=== PATIENT | male | born 1945 | race Caucasian/White ===

== ENCOUNTER → 2017-04-27 | Outpatient (CLI) | payer MEDICARE, OTHER | LOC: COL.RAD 14:24 | DX: M48.07 Spinal stenosis, lumbosacral region (principal); M47.817 Spondylosis without myelopathy or radiculopathy, lumbosacral region; M79.662 Pain in left lower leg; M79.661 Pain in right lower leg; R53.1 Weakness ==

== ENCOUNTER 2017-07-28 16:59 | Emergency (ER) | payer MEDICARE, OTHER ==
[~2017-07-28] VITALS: Ht 180.3 cm; Wt 109.1 kg
[2017-07-28 17:02] VITALS: TEMP 97.5
[2017-07-28 17:32] LABS: BASO # 0.1 (0.0-0.2); BASO % 0.5 % (0.0-2.0); EOS # 0.3 (0.0-0.7); EOS % 3.1 % (0-4.0); GRAN # 4.7 (1.4-6.5); GRAN % 43.6 % (42.2-75.2); HEMATOCRIT 37.5 % (42.0-52.0); HEMOGLOBIN 12.3 g/dl (13.5-18.0); LYMPH # 4.9 (1.2-3.4); LYMPH % 45.4 % (20.0-51.0); MEAN CELL VOLUME 97 fl (80.0-100.0); MEAN CORPUSCULAR HEMOGLOBIN 32 pg (27.0-31.0); MEAN CORPUSCULAR HGB CONC 33 g/dl (33.0-37.0); MEAN PLATELET VOLUME 9.2 fl (7.4-10.4); MONO # 0.7 (0.1-0.6); MONO % 6.6 % (1.7-9.3); PLATELET COUNT 217 K/mm3 (130-400); RED BLOOD COUNT 3.86 M/mm3 (4.20-5.60); WHITE BLOOD COUNT 10.8 K/mm3 (4.8-10.8)
[2017-07-28 17:37] LABS: PROTHROMBIN TIME 11.4 SECONDS (9.7-12.8)
[2017-07-28 17:40] LABS: PARTIAL THROMBOPLASTIN TIME 22.2 SECONDS (26.0-37.0)
[2017-07-28 17:41] LABS: ADJUSTED CALCIUM 9.4 mg/dL (8.4-10.2); ALANINE AMINOTRANSFERASE 38 U/L (21-72); ALBUMIN 3.8 gm/dL (3.5-5.0); ALKALINE PHOSPHATASE 55 U/L (50-136); ANION GAP 8 mmol/L (7-16); BILIRUBIN,TOTAL 0.2 mg/dL (0.0-1.0); BLOOD UREA NITROGEN 18 mg/dL (9-20); CALCIUM 9.2 mg/dL (8.4-10.2); CARBON DIOXIDE 25 mmol/L (22-30); CHLORIDE 104 mmol/L (98-107); CREATININE, serum 1.12 mg/dL (0.66-1.25); GLUCOSE 162 mg/dL (74-106); LIPASE 144 U/L (23-300); POTASSIUM 3.9 mmol/L (3.4-5.0); SODIUM 137 mmol/L (137-145); TOTAL PROTEIN 6.3 gm/dL (6.4-8.2)
[2017-07-28 17:55] LABS: TROPONIN-I < 0.012 ng/mL (0.000-0.034)
[2017-07-28] MEDS ORDERED: INCRUSE EL62.5 MCG/A IH (17:56)
[2017-07-28] MEDS ORDERED: RT ADVAIR 128 DISKUS IH (17:56)
[2017-07-28 18:17] VITALS: BP 117/84; PULSE 87
== END 2017-07-28 18:30 | disposition short-term general hospital (02) ==
LOC: COL.ER 16:59
PROVIDERS: Emergency Medicine
DX: I71.3 Abdominal aortic aneurysm, ruptured (principal); J44.9 Chronic obstructive pulmonary disease, unspecified; G89.29 Other chronic pain; M54.5 Low back pain; Z87.891 Personal history of nicotine dependence; Z98.890 Other specified postprocedural states
CPT/HCPCS: J1200; J2270; J2405; J7030; J7050; P9016; Q9967

== ENCOUNTER 2017-09-08 09:24 | Inpatient (IN) | payer MEDICARE, OTHER ==
[2017-09-08] VITALS (12 sets, daily range): BP systolic 117–165; BP diastolic 52–77; PULSE 59–70; TEMP 97.6–97.8
[~2017-09-08] VITALS: Ht 180.3 cm; Wt 98.1 kg
[~2017-09-08 09:24] MED LIST: INCRUSE EL62.5 MCG/A IH; RT ADVAIR 128 DISKUS IH
[2017-09-08] MEDS ORDERED: BP MED (09:40)
[2017-09-08] MEDS ORDERED: FLOMAX 0.40.4 MG/CAP PO (09:41)
[2017-09-08] MEDS ORDERED: LASIX 20MG TABL20 MG (09:41)
[2017-09-08 10:57] LABS: BASO % 0.3 % (0.0-2.0); EOS # 0.1 (0.0-0.7); EOS % 0.9 % (0-4.0); GRAN # 8.7 (1.4-6.5); GRAN % 73.2 % (42.2-75.2); HEMATOCRIT 39.6 % (42.0-52.0); HEMOGLOBIN 12.7 g/dl (13.5-18.0); LYMPH # 2.3 (1.2-3.4); MEAN CELL VOLUME 96 fl (80.0-100.0); MEAN CORPUSCULAR HEMOGLOBIN 31 pg (27.0-31.0); MEAN CORPUSCULAR HGB CONC 32 g/dl (33.0-37.0); MEAN PLATELET VOLUME 8.7 fl (7.4-10.4); MONO # 0.7 (0.1-0.6); PLATELET COUNT 195 K/mm3 (130-400); RED BLOOD COUNT 4.14 M/mm3 (4.20-5.60); REDCELL DISTRIBUTION WIDTH-CV 14.6 % (11.5-14.5)
[2017-09-08 11:12] LABS: ALBUMIN 4.3 gm/dL (3.5-5.0); BILIRUBIN,TOTAL 0.7 mg/dL (0.0-1.0); CALCIUM 9.7 mg/dL (8.4-10.2); POTASSIUM 4.3 mmol/L (3.4-5.0); TOTAL PROTEIN 7.6 gm/dL (6.4-8.2)
[2017-09-08] MEDS ORDERED: NORVASC 5MG5 MG/TAB PO (13:08)
[2017-09-08] MEDS ORDERED: PROAIR HFA0.09 MG/AC IH (13:09)
[2017-09-08] MEDS ORDERED: RT ADVAIR 228 DISKUS IH (13:09)
[2017-09-09 01:35] VITALS: BP 113/48; PULSE 61; TEMP 97.8
[2017-09-09 04:08] VITALS: BP 113/48; PULSE 62; TEMP 98.8
[2017-09-09 08:00] VITALS: BP 134/63; PULSE 59; TEMP 97.8
[2017-09-09 11:22] VITALS: BP 112/43; PULSE 72; TEMP 98.1
[2017-09-09 12:23] LABS: BASO % 0.4 % (0.0-2.0); EOS # 0.1 (0.0-0.7); EOS % 1.2 % (0-4.0); GRAN # 4.1 (1.4-6.5); GRAN % 60.5 % (42.2-75.2); HEMATOCRIT 34.9 % (42.0-52.0); HEMOGLOBIN 11.3 g/dl (13.5-18.0); LYMPH # 1.9 (1.2-3.4); LYMPH % 27.4 % (20.0-51.0); MEAN CELL VOLUME 96 fl (80.0-100.0); MEAN CORPUSCULAR HEMOGLOBIN 31 pg (27.0-31.0); MEAN CORPUSCULAR HGB CONC 32 g/dl (33.0-37.0); MEAN PLATELET VOLUME 8.7 fl (7.4-10.4); MONO # 0.7 (0.1-0.6); MONO % 9.9 % (1.7-9.3); PLATELET COUNT 185 K/mm3 (130-400); RED BLOOD COUNT 3.64 M/mm3 (4.20-5.60); REDCELL DISTRIBUTION WIDTH-CV 14.6 % (11.5-14.5)
[2017-09-09 12:34] LABS: CALCIUM 8.7 mg/dL (8.4-10.2); CREATININE, serum 0.86 mg/dL (0.66-1.25); POTASSIUM 3.3 mmol/L (3.4-5.0)
[2017-09-09 15:52] VITALS: BP 133/56; PULSE 60; TEMP 98.7
[2017-09-09 22:26] VITALS: BP 124/55; PULSE 54; TEMP 98.1
[2017-09-10] VITALS (14 sets, daily range): BP systolic 117–170; BP diastolic 50–75; PULSE 59–70; TEMP 98.1–98.2
[2017-09-10 07:21] LABS: BASO % 0.4 % (0.0-2.0); EOS # 0.1 (0.0-0.7); EOS % 1.5 % (0-4.0); GRAN # 4.8 (1.4-6.5); GRAN % 61.3 % (42.2-75.2); LYMPH # 2.2 (1.2-3.4); LYMPH % 27.7 % (20.0-51.0); MEAN CELL VOLUME 96 fl (80.0-100.0); MEAN CORPUSCULAR HGB CONC 32 g/dl (33.0-37.0); MEAN PLATELET VOLUME 9.1 fl (7.4-10.4); MONO # 0.7 (0.1-0.6); MONO % 8.6 % (1.7-9.3); PLATELET COUNT 211 K/mm3 (130-400); RED BLOOD COUNT 3.51 M/mm3 (4.20-5.60); REDCELL DISTRIBUTION WIDTH-CV 14.5 % (11.5-14.5)
[2017-09-10 07:26] LABS: HEMATOCRIT 33.6 % (42.0-52.0); HEMOGLOBIN 10.8 g/dl (13.5-18.0); MEAN CORPUSCULAR HEMOGLOBIN 31 pg (27.0-31.0)
[2017-09-10 07:29] LABS: CALCIUM 9.1 mg/dL (8.4-10.2); CREATININE, serum 0.77 mg/dL (0.66-1.25); POTASSIUM 4.2 mmol/L (3.4-5.0)
[2017-09-10 20:19] LABS: HEMATOCRIT 32.2 % (42.0-52.0); HEMOGLOBIN 10.3 g/dl (13.5-18.0)
[2017-09-11 00:13] VITALS: BP 115/41; PULSE 56; TEMP 98.1
[2017-09-11 04:34] VITALS: BP 103/84; PULSE 56; TEMP 97.8
[2017-09-11 08:19] VITALS: BP 123/44; PULSE 71; TEMP 97.2
[2017-09-11 08:22] LABS: BASO % 0.3 % (0.0-2.0); EOS # 0.1 (0.0-0.7); EOS % 2.3 % (0-4.0); GRAN # 3.6 (1.4-6.5); GRAN % 59.4 % (42.2-75.2); LYMPH # 1.8 (1.2-3.4); LYMPH % 29.3 % (20.0-51.0); MEAN CELL VOLUME 97 fl (80.0-100.0); MEAN CORPUSCULAR HGB CONC 32 g/dl (33.0-37.0); MEAN PLATELET VOLUME 8.5 fl (7.4-10.4); MONO # 0.5 (0.1-0.6); MONO % 8.2 % (1.7-9.3); PLATELET COUNT 184 K/mm3 (130-400); RED BLOOD COUNT 3.26 M/mm3 (4.20-5.60); REDCELL DISTRIBUTION WIDTH-CV 14.4 % (11.5-14.5)
[2017-09-11 08:24] LABS: HEMATOCRIT 31.5 % (42.0-52.0); HEMOGLOBIN 10.1 g/dl (13.5-18.0); MEAN CORPUSCULAR HEMOGLOBIN 31 pg (27.0-31.0)
[2017-09-11 08:31] LABS: CREATININE, serum 0.75 mg/dL (0.66-1.25)
[2017-09-11] MEDS ORDERED: ASPIRIN E.C. 8181 MG PO (11:59)
[2017-09-11] MEDS ORDERED: PLAVIX 75MG TAB75 MG PO (11:59)
[2017-09-11] MEDS ORDERED: ELIQUIS 5MG PO (12:02)
[2017-09-11] MEDS ORDERED: PROTONIX 40MG T40 MG PO (12:10)
== END 2017-09-11 14:00 | disposition home health service (06) | DRG 271 ==
LOC: COL.ER 09:24 → MEDICAL 11:16
PROVIDERS: Emergency Medicine; Nurse Practitioner Family; Physician Assistant; Radiology Diagnostic Radiology
PROC: 06H03DZ Insertion of Intraluminal Device into Inferior Vena Cava, Percutaneous Approach (ICD-10-PCS; principal; 2017-09-08)
PROC: 06CD3ZZ Extirpation of Matter from Left Common Iliac Vein, Percutaneous Approach (ICD-10-PCS; 2017-09-10)
PROC: 067D3DZ Dilation of Left Common Iliac Vein with Intraluminal Device, Percutaneous Approach (ICD-10-PCS; 2017-09-10)
PROC: 067C3DZ Dilation of Right Common Iliac Vein with Intraluminal Device, Percutaneous Approach (ICD-10-PCS; 2017-09-10)
PROC: 067G3DZ Dilation of Left External Iliac Vein with Intraluminal Device, Percutaneous Approach (ICD-10-PCS; 2017-09-10)
PROC: 067N3DZ Dilation of Left Femoral Vein with Intraluminal Device, Percutaneous Approach (ICD-10-PCS; 2017-09-10)
PROC: 067F3DZ Dilation of Right External Iliac Vein with Intraluminal Device, Percutaneous Approach (ICD-10-PCS; 2017-09-10)
PROC: 06703ZZ Dilation of Inferior Vena Cava, Percutaneous Approach (ICD-10-PCS; 2017-09-10)
PROC: B54DZZ3 Ultrasonography of Bilateral Lower Extremity Veins, Intravascular (ICD-10-PCS; 2017-09-10)
PROC: B51B1ZA Fluoroscopy of Right Lower Extremity Veins using Low Osmolar Contrast, Guidance (ICD-10-PCS; 2017-09-10)
DX: I82.422 Acute embolism and thrombosis of left iliac vein (principal); I97.638 Postprocedural hematoma of a circulatory system organ or structure following other circulatory system procedure; I82.412 Acute embolism and thrombosis of left femoral vein; I10 Essential (primary) hypertension; K44.9 Diaphragmatic hernia without obstruction or gangrene; Z87.891 Personal history of nicotine dependence; E87.6 Hypokalemia; I70.293 Other atherosclerosis of native arteries of extremities, bilateral legs
CPT/HCPCS: 99223-AI; 99232-AI; 99239; C1725; C1753; C1757; C1769; C1876; C1880; C1887; C1894; J0360; J1170; J1644; J1650; J2250; J2270; J3010; J7030; J7040; Q9967

== ENCOUNTER → 2018-03-01 | Outpatient (CLI) | payer MEDICARE, OTHER ==
[~2018-03-01] MED LIST changes: +ASPIRIN E.C. 8181 MG PO; +BP MED; +ELIQUIS 5MG PO; +FLOMAX 0.40.4 MG/CAP PO; +LASIX 20MG TABL20 MG; +NORVASC 5MG5 MG/TAB PO; +PLAVIX 75MG TAB75 MG PO; +PROAIR HFA0.09 MG/AC IH; +PROTONIX 40MG T40 MG PO; +RT ADVAIR 228 DISKUS IH
== END ==
LOC: COL.VAS 07:52
DX: I87.2 Venous insufficiency (chronic) (peripheral) (principal); Z79.01 Long term (current) use of anticoagulants; Z86.718 Personal history of other venous thrombosis and embolism

== ENCOUNTER → 2018-03-02 | Outpatient (CLI) | payer MEDICARE, OTHER | LOC: COL.RAD 08:02 | DX: Z09 Encounter for follow-up examination after completed treatment for conditions other than malignant neoplasm (principal); Z95.5 Presence of coronary angioplasty implant and graft; Z95.820 Peripheral vascular angioplasty status with implants and grafts ==

== ENCOUNTER 2018-03-18 07:32 | Outpatient (CLI) | payer MEDICARE, OTHER ==
[2018-03-18] VITALS (8 sets, daily range): BP systolic 117–155; BP diastolic 64–86; PULSE 46–64; TEMP 96.8–99.3
[~2018-03-18] VITALS: Ht 180.3 cm; Wt 105.0 kg
[~2018-03-18 07:32] MED LIST changes: -PROAIR HFA0.09 MG/AC IH
[2018-03-18] MEDS ORDERED: PROAIR HFA0.09 MG/AC IH (08:09)
[2018-03-18] MEDS ORDERED: PLAVIX 75MG TAB75 MG PO (08:11)
[2018-03-18] MEDS ORDERED: PROTONIX 40MG T40 MG PO (08:12)
[2018-03-18] MEDS ORDERED: ELIQUIS 5MG PO (08:13)
[2018-03-18] MEDS ORDERED: SENOKOT S 50 MG1 TAB PO ×2 (08:15)
== END 2018-03-18 13:21 | disposition home or self-care (01) ==
LOC: COL.CAR 07:32
DX: Z45.2 Encounter for adjustment and management of vascular access device (principal); I82.409 Acute embolism and thrombosis of unspecified deep veins of unspecified lower extremity; I71.3 Abdominal aortic aneurysm, ruptured; Z79.01 Long term (current) use of anticoagulants; Z79.02 Long term (current) use of antithrombotics/antiplatelets
CPT/HCPCS: C1769; J1644; J2250; J3010; J7120

== ENCOUNTER 2018-08-02 09:00 | Outpatient (RCR) | payer MEDICARE, OTHER ==
[~2018-08-02 09:00] MED LIST changes: +PROAIR HFA0.09 MG/AC IH; +SENOKOT S 50 MG1 TAB PO
== END 2018-08-05 | disposition home or self-care (01) ==
LOC: MKS.ESL.PT
DX: M54.40 Lumbago with sciatica, unspecified side (principal); M79.605 Pain in left leg; M25.552 Pain in left hip; M79.604 Pain in right leg; M25.551 Pain in right hip; Z79.01 Long term (current) use of anticoagulants; Z79.899 Other long term (current) drug therapy; Z86.718 Personal history of other venous thrombosis and embolism; Z95.828 Presence of other vascular implants and grafts
CPT/HCPCS: G8978-GP; G8979-GP

== ENCOUNTER 2018-09-03 15:00 | Outpatient (RCR) | payer MEDICARE, OTHER | END 2018-09-06 09:29 | disposition home or self-care (01) | LOC: MKS.ESL.PT 15:00 | DX: M54.5 Low back pain (principal); M79.605 Pain in left leg; M79.604 Pain in right leg | CPT/HCPCS: G0283-GP ==

== ENCOUNTER → 2018-11-23 | Outpatient (CLI) | payer MEDICARE, OTHER | LOC: COL.RAD 10:55 | DX: M51.27 Other intervertebral disc displacement, lumbosacral region (principal); M51.36 Other intervertebral disc degeneration, lumbar region; M48.062 Spinal stenosis, lumbar region with neurogenic claudication; M89.38 Hypertrophy of bone, other site; I71.4 Abdominal aortic aneurysm, without rupture; Z95.828 Presence of other vascular implants and grafts ==

== ENCOUNTER → 2018-12-08 | Outpatient (CLI) | payer MEDICARE, OTHER | LOC: COL.RAD 10:19 | DX: M47.816 Spondylosis without myelopathy or radiculopathy, lumbar region (principal); M54.42 Lumbago with sciatica, left side ==

== ENCOUNTER → 2019-03-23 | Outpatient (CLI) | payer MEDICARE, OTHER | LOC: COL.RAD 12:15 | DX: M47.812 Spondylosis without myelopathy or radiculopathy, cervical region (principal); M48.02 Spinal stenosis, cervical region; R26.81 Unsteadiness on feet ==

== ENCOUNTER → 2019-04-05 | Outpatient (CLI) | payer MEDICARE, OTHER | LOC: COL.VAS 09:26 | DX: M48.062 Spinal stenosis, lumbar region with neurogenic claudication (principal); I73.9 Peripheral vascular disease, unspecified ==

== ENCOUNTER → 2019-06-10 | Outpatient (CLI) | payer MEDICARE, OTHER | LOC: COL.RAD 09:28 | DX: M47.812 Spondylosis without myelopathy or radiculopathy, cervical region (principal); R29.2 Abnormal reflex ==

== ENCOUNTER 2019-06-22 09:15 | Outpatient (RCR) | payer MEDICARE, OTHER | END 2019-06-23 | disposition home or self-care (01) | LOC: WSC | DX: M48.062 Spinal stenosis, lumbar region with neurogenic claudication (principal); M47.819 Spondylosis without myelopathy or radiculopathy, site unspecified; M53.3 Sacrococcygeal disorders, not elsewhere classified ==

== ENCOUNTER 2019-07-25 08:00 | Outpatient (RCR) | payer MEDICARE, OTHER | END 2019-07-28 13:52 | disposition home or self-care (01) | LOC: WSC 08:00 | DX: M48.062 Spinal stenosis, lumbar region with neurogenic claudication (principal); M47.819 Spondylosis without myelopathy or radiculopathy, site unspecified; M53.3 Sacrococcygeal disorders, not elsewhere classified ==

== ENCOUNTER → 2019-12-16 | Outpatient (CLI) | payer MEDICARE, OTHER | LOC: COL.RAD 08:12 | DX: I71.4 Abdominal aortic aneurysm, without rupture (principal); Z87.891 Personal history of nicotine dependence; Z95.5 Presence of coronary angioplasty implant and graft ==

== ENCOUNTER 2020-07-13 09:00 | Outpatient (RCR) | payer MEDICARE, OTHER | END 2020-07-24 | disposition home or self-care (01) | LOC: WSC | DX: M48.04 Spinal stenosis, thoracic region (principal); G99.2 Myelopathy in diseases classified elsewhere; M47.819 Spondylosis without myelopathy or radiculopathy, site unspecified; M43.8X9 Other specified deforming dorsopathies, site unspecified ==

== ENCOUNTER → 2021-01-01 | Outpatient (CLI) | payer MEDICARE, OTHER | LOC: COL.RAD 12:39 | DX: Z12.2 Encounter for screening for malignant neoplasm of respiratory organs (principal); Z87.891 Personal history of nicotine dependence ==

== ENCOUNTER → 2021-01-04 | Outpatient (CLI) | payer MEDICARE, OTHER | LOC: COL.RAD 06:42 | DX: Z13.6 Encounter for screening for cardiovascular disorders (principal); Z95.828 Presence of other vascular implants and grafts; Z87.891 Personal history of nicotine dependence ==

== ENCOUNTER → 2021-07-31 | Outpatient (CLI) | payer MEDICARE, OTHER | LOC: COL.VAS 11:42 | DX: I73.9 Peripheral vascular disease, unspecified (principal); Z98.890 Other specified postprocedural states; Z95.820 Peripheral vascular angioplasty status with implants and grafts ==

== ENCOUNTER → 2021-12-19 | Outpatient (CLI) | payer MEDICARE, OTHER | LOC: COL.RAD 08:21 | DX: I71.4 Abdominal aortic aneurysm, without rupture (principal) ==

== ENCOUNTER → 2022-01-03 | Outpatient (CLI) | payer MEDICARE, OTHER | LOC: COL.RAD 13:48 | DX: Z12.2 Encounter for screening for malignant neoplasm of respiratory organs (principal); F17.201 Nicotine dependence, unspecified, in remission ==

== ENCOUNTER → 2022-01-07 | Outpatient (CLI) | payer MEDICARE, OTHER | LOC: MHCPAIN 10:49 | DX: M54.50 Low back pain, unspecified (principal); I73.9 Peripheral vascular disease, unspecified; M25.552 Pain in left hip; M25.551 Pain in right hip; E11.9 Type 2 diabetes mellitus without complications; J44.9 Chronic obstructive pulmonary disease, unspecified; M53.3 Sacrococcygeal disorders, not elsewhere classified | CPT/HCPCS: G0463 ==

== ENCOUNTER → 2022-01-07 | Outpatient (CLI) | payer MEDICARE, OTHER | LOC: COL.RAD 12:19 | DX: M16.0 Bilateral primary osteoarthritis of hip (principal); M47.816 Spondylosis without myelopathy or radiculopathy, lumbar region; Z95.828 Presence of other vascular implants and grafts ==

== ENCOUNTER → 2022-03-13 | Outpatient (CLI) | payer MEDICARE, OTHER | LOC: COL.RAD 08:26 | DX: R10.84 Generalized abdominal pain (principal) ==

== ENCOUNTER → 2022-04-01 | Outpatient (CLI) | payer MEDICARE, OTHER | LOC: MHCPAIN 10:23 | DX: M54.9 Dorsalgia, unspecified (principal); M54.59 Other low back pain; Z98.890 Other specified postprocedural states; I73.9 Peripheral vascular disease, unspecified; R29.6 Repeated falls; G62.9 Polyneuropathy, unspecified | CPT/HCPCS: G0463 ==

== ENCOUNTER → 2022-04-03 | Outpatient (CLI) | payer MEDICARE, OTHER | LOC: COL.RAD 10:18 | DX: I73.9 Peripheral vascular disease, unspecified (principal); Z95.820 Peripheral vascular angioplasty status with implants and grafts | CPT/HCPCS: Q9967 ==

== ENCOUNTER → 2022-04-17 | Outpatient (CLI) | payer MEDICARE, OTHER | LOC: MHCPAIN 10:15 | DX: M54.59 Other low back pain (principal); R29.6 Repeated falls; I73.9 Peripheral vascular disease, unspecified; G62.9 Polyneuropathy, unspecified; Z98.890 Other specified postprocedural states | CPT/HCPCS: G0463 ==

== ENCOUNTER → 2022-05-28 | Outpatient (CLI) | payer MEDICARE, OTHER | LOC: MHCPAIN 12:28 | DX: M79.2 Neuralgia and neuritis, unspecified (principal); M53.3 Sacrococcygeal disorders, not elsewhere classified; M54.50 Low back pain, unspecified; M96.1 Postlaminectomy syndrome, not elsewhere classified | CPT/HCPCS: G0463 ==

== ENCOUNTER → 2022-10-01 | Outpatient (CLI) | payer MEDICARE, OTHER | LOC: MHCPAIN 08:14 | DX: M51.36 Other intervertebral disc degeneration, lumbar region (principal); M96.1 Postlaminectomy syndrome, not elsewhere classified; M47.896 Other spondylosis, lumbar region | CPT/HCPCS: G0463 ==

== ENCOUNTER 2022-11-17 09:37 | Outpatient (RCR) | payer MEDICARE, OTHER | END 2022-11-30 | disposition home or self-care (01) | LOC: WSPT | DX: M25.562 Pain in left knee (principal) ==

== ENCOUNTER → 2023-05-05 | Outpatient (CLI) | payer MEDICARE, OTHER | LOC: MHCPAIN 12:20 | DX: M47.896 Other spondylosis, lumbar region (principal); M54.16 Radiculopathy, lumbar region; M96.1 Postlaminectomy syndrome, not elsewhere classified; G89.29 Other chronic pain | CPT/HCPCS: G0463 ==

== ENCOUNTER → 2023-05-26 | Outpatient (CLI) | payer MEDICARE, OTHER | LOC: MHCPAIN 08:03 | DX: M79.2 Neuralgia and neuritis, unspecified (principal); M54.50 Low back pain, unspecified; M53.3 Sacrococcygeal disorders, not elsewhere classified; M96.1 Postlaminectomy syndrome, not elsewhere classified | CPT/HCPCS: G0463 ==

== ENCOUNTER → 2023-09-01 | Outpatient (CLI) | payer MEDICARE, OTHER | LOC: COL.RAD 09:44 | DX: M48.14 Ankylosing hyperostosis [Forestier], thoracic region (principal); M96.1 Postlaminectomy syndrome, not elsewhere classified ==

== ENCOUNTER → 2023-09-01 | Outpatient (CLI) | payer MEDICARE, OTHER | LOC: MHCPAIN 08:38 | DX: M47.896 Other spondylosis, lumbar region (principal); M96.1 Postlaminectomy syndrome, not elsewhere classified; M79.2 Neuralgia and neuritis, unspecified | CPT/HCPCS: G0463 ==

== ENCOUNTER → 2024-05-24 | Outpatient (CLI) | payer MEDICARE, OTHER ==
[~2024-05-24] MED LIST changes: +LIPITOR 10MG10 MG PO; +LYRICA 150MG C150 MG PO; +ROBAXIN 50500 MG/TAB PO
== END ==
LOC: MHCPAIN 08:51
DX: M79.2 Neuralgia and neuritis, unspecified (principal); M53.3 Sacrococcygeal disorders, not elsewhere classified; M96.1 Postlaminectomy syndrome, not elsewhere classified
CPT/HCPCS: G0463